=== PATIENT | female | born 1955 | race Caucasian/White ===

== ENCOUNTER 2017-11-12 16:02 | Outpatient (CLI) | payer BC | END 2017-11-12 16:03 | disposition home or self-care (01) | LOC: BICMAMMO 16:02 | PROVIDERS: ATTEND Family Medicine | DX: Z12.31 Encounter for screening mammogram for malignant neoplasm of breast (principal); Z80.3 Family history of malignant neoplasm of breast | CPT/HCPCS: 77063; 77067 ==

== ENCOUNTER 2018-02-17 07:59 | Outpatient (CLI) | payer BC ==
--- NOTE | 2018-02-17 11:15 | MRI ---
MRI LUMBAR SPINE NONCONTRAST: DATE: 02-17-19 HISTORY: 62-year-old female with low back pain and multiple falls causing lumbar trauma. COMPARISON: No prior lumbar spine MRIs. FINDINGS: Vertebral body heights are maintained. No major spondylolisthesis. No bone marrow edema. Spinal canal and thecal sac are generous in caliber throughout all levels. There is exaggerated lordosis of the l umbar spine. Mild disc space narrowing at L4-5 where there is a shallow disc bulge which does not cau se central stenosis. There is no neural foraminal stenosis, nerve root impingement or cord impingemen t at any level. Conus medullaris terminates at upper L2 level. The cauda equina is arranged in a symm etrical, normal distribution throughout all levels. The bilateral degenerative facet changes are pred ominately mild. No hematoma or edema in the perivertebral spaces. IMPRESSION: 1. No compression fracture. 2. Exaggerated lordosis of the lower lumbar spine, associated with mild to moderate degenerative disc disease at L4-5. 3. No central spinal canal stenosis, neuroforaminal stenosis, or nerve root impingement, at any level . 4. Mild lower lumbar spondylosis. SCOTTY Stewart POS: BEATA
== END 2018-02-17 08:00 | disposition home or self-care (01) ==
LOC: BICMRI 07:59
PROVIDERS: ATTEND Orthopaedic Surgery
DX: M54.5 Low back pain (principal); M47.896 Other spondylosis, lumbar region; M51.36 Other intervertebral disc degeneration, lumbar region; M40.56 Lordosis, unspecified, lumbar region
CPT/HCPCS: 72148

== ENCOUNTER 2018-11-14 07:57 | Outpatient (CLI) | payer BC ==
--- NOTE | 2018-11-14 08:46 | MMO ---
Bilateral MAMMO Bilat Screen [facility]. CLINICAL HISTORY: Patient is 63 years old and is seen for screening. The patient has the following family history of breast cancer: mother. The patient has no personal history of cancer. VIEWS: The views performed were: bilateral craniocaudal with tomosynthesis and bilateral mediolateral oblique with tomosynthesis. FILMS COMPARED: The present examination has been compared to prior imaging studies performed at [facility] on 05/28/2014, 07/22/2015, 11/02/2016 and 11/12/2017. MAMMOGRAM FINDINGS: There are scattered fibroglandular densities. There are no suspicious masses, suspicious calcifications, or new areas of architectural distortion. IMPRESSION: THERE IS NO MAMMOGRAPHIC EVIDENCE OF MALIGNANCY. A ROUTINE FOLLOW-UP MAMMOGRAM IN 1 YEAR IS RECOMMENDED. THE RESULTS OF THIS EXAM WERE SENT TO THE PATIENT. ACR BI-RADS Category 1 - Negative MAMMOGRAPHY NOTE: 1. A negative mammogram report should not delay a biopsy if a dominant of clinically suspicious mass is present. 2. Approximately 10% to 15% of breast cancers are not detected by mammography. 3. Adenosis and dense breasts may obscure an underlying neoplasm.
== END 2018-11-14 07:58 | disposition home or self-care (01) ==
LOC: BICMAMMO 07:57
PROVIDERS: ATTEND Family Medicine
DX: Z12.31 Encounter for screening mammogram for malignant neoplasm of breast (principal); Z80.3 Family history of malignant neoplasm of breast
CPT/HCPCS: 77063; 77067

== ENCOUNTER 2020-01-05 08:02 | Outpatient (CLI) | payer BC ==
--- NOTE | 2020-01-05 09:35 | BD ---
DEXA BONE DENSITY STUDY: Date: 01/05/2020 HISTORY: 64-year-old postmenopausal female for screening for osteoporosis. FINDINGS: Lumbar Spine: BMD (g/cm2) L1 0.693 T-Score: -2.7 L2 0.641 T-Score: -3.5 L3 0.839 T-Score: -2.2 L4 0.855 T-Score: -1.9 L1-L4 0.756 T-Score: -2.6 Left Femoral Neck: 0.573 T-Score: -2.5 Total Femur: 0.789 T-Score: -1.3 IMPRESSION: Osteoporosis. POS: EAA
--- NOTE | 2020-01-05 12:09 | MMO ---
Bilateral MAMMO Bilat Screen [facility]. CLINICAL HISTORY: Patient is 64 years old and is seen for screening. The patient has the following family history of breast cancer: mother. The patient has no personal history of cancer. VIEWS: The views performed were: bilateral craniocaudal with tomosynthesis and bilateral mediolateral oblique with tomosynthesis. FILMS COMPARED: The present examination has been compared to prior imaging studies performed at [facility] on 07/22/2015, 11/02/2016, 11/12/2017 and 11/14/2018. This study has been interpreted with the assistance of computer-aided detection. MAMMOGRAM FINDINGS: There are scattered fibroglandular densities. There are stable benign appearing calcifications seen in both breasts. There are no suspicious masses, suspicious calcifications, or new areas of architectural distortion. IMPRESSION: THERE IS NO MAMMOGRAPHIC EVIDENCE OF MALIGNANCY. A ROUTINE FOLLOW-UP MAMMOGRAM IN 1 YEAR IS RECOMMENDED. THE RESULTS OF THIS EXAM WERE SENT TO THE PATIENT. ACR BI-RADS Category 2 - Benign finding MAMMOGRAPHY NOTE: 1. A negative mammogram report should not delay a biopsy if a dominant of clinically suspicious mass is present. 2. Approximately 10% to 15% of breast cancers are not detected by mammography. 3. Adenosis and dense breasts may obscure an underlying neoplasm. Reported by: JESSE AVERY MD Electonically Signed: [id number]
== END 2020-01-05 08:03 | disposition home or self-care (01) ==
LOC: BICMAMMO 08:02
PROVIDERS: ATTEND Family Medicine
DX: Z12.31 Encounter for screening mammogram for malignant neoplasm of breast (principal); M81.0 Age-related osteoporosis without current pathological fracture; Z80.3 Family history of malignant neoplasm of breast
CPT/HCPCS: 77063; 77067; 77080

== ENCOUNTER 2021-01-06 09:00 | Outpatient (CLI) | payer BC | END 2021-01-06 09:01 | disposition home or self-care (01) | LOC: BICMAMMO 09:00 | PROVIDERS: ATTEND Family Medicine | DX: Z12.31 Encounter for screening mammogram for malignant neoplasm of breast (principal); Z80.3 Family history of malignant neoplasm of breast | CPT/HCPCS: 77063; 77067 ==

== ENCOUNTER 2023-04-15 13:05 | Outpatient (CLI) | payer BC | END 2023-04-15 13:06 | disposition home or self-care (01) | LOC: BICMAMMO 13:05 | PROVIDERS: ATTEND Family Medicine | DX: Z12.31 Encounter for screening mammogram for malignant neoplasm of breast (principal); Z80.3 Family history of malignant neoplasm of breast | CPT/HCPCS: 77063; 77067 ==

== ENCOUNTER 2024-05-09 11:06 | Outpatient (CLI) | payer BC | END 2024-05-09 11:07 | disposition home or self-care (01) | LOC: BICMAMMO 11:06 | PROVIDERS: ATTEND Family Medicine | DX: Z12.31 Encounter for screening mammogram for malignant neoplasm of breast (principal); Z80.3 Family history of malignant neoplasm of breast | CPT/HCPCS: 77063; 77067 ==

== ENCOUNTER 2025-04-05 08:18 | Outpatient (CLI) | payer BC | END 2025-04-05 08:19 | disposition home or self-care (01) | LOC: BICRAD 08:18 | PROVIDERS: ATTEND Orthopaedic Surgery | DX: M54.50 Low back pain, unspecified (principal); M47.816 Spondylosis without myelopathy or radiculopathy, lumbar region; M41.9 Scoliosis, unspecified | CPT/HCPCS: 72100 ==

== ENCOUNTER 2025-04-26 11:22 | Outpatient (CLI) | payer BC | END 2025-04-26 11:23 | disposition home or self-care (01) | LOC: BICMRI 11:22 | PROVIDERS: ATTEND Orthopaedic Surgery | DX: M54.16 Radiculopathy, lumbar region (principal); M48.061 Spinal stenosis, lumbar region without neurogenic claudication; M48.07 Spinal stenosis, lumbosacral region | CPT/HCPCS: 72148 ==